=== PATIENT | male | born 1955 | race Caucasian/White ===

== ENCOUNTER 2021-08-04 09:05 | Outpatient (CLI) | payer MEDICARE, OTHER ==
[2021-08-04] MEDS ORDERED: ALBUTEROL 1 PUFF INH STA (14:37)
== END 2021-08-04 09:06 | disposition home or self-care (01) ==
LOC: RT 09:05
PROVIDERS: ATTEND Physician Assistant
DX: R06.00 Dyspnea, unspecified (principal)
CPT/HCPCS: 94060

== ENCOUNTER 2021-10-15 08:44 | Outpatient (CLI) | payer MEDICARE, OTHER | END 2021-10-15 08:45 | disposition home or self-care (01) | LOC: DI 08:44 | PROVIDERS: ATTEND Physician Assistant | DX: J44.9 Chronic obstructive pulmonary disease, unspecified (principal); R06.02 Shortness of breath; I51.7 Cardiomegaly; I07.1 Rheumatic tricuspid insufficiency; R91.8 Other nonspecific abnormal finding of lung field | CPT/HCPCS: 93306 ==

== ENCOUNTER 2021-10-15 10:05 | Outpatient (CLI) | payer MEDICARE, OTHER ==
--- NOTE | 2021-10-15 10:40 | XRAY Report ---
PROCEDURE: Chest 2 View X-Ray INDICATIONS: COUGH TECHNIQUE: 2 view(s) of the chest. COMPARISON: None. FINDINGS: Surgical changes and devices: None. Lungs and pleura: No pleural effusions or pneumothorax. There is hyperinflation. Increased bronchova scular markings in bilateral hilar region are seen with mild bronchial wall thickening. No focal infi ltrate. Mediastinum: Mediastinal contours are normal. Heart size is normal. Bones and chest wall: No suspicious bony abnormalities. Soft tissues appear unremarkable. IMPRESSION: Hyperinflation. Suggestion of reactive airway disease such as bronchitis or viral illnes s. No focal infiltrate, pleural effusion or pneumothorax. Reviewed by: Jasbir Barnes MD on 10/15/2021 10:39 AM PST Approved by: Jasbir Barnes MD on 10/15/2021 10:39 AM [facility] Station ID: [id number]
== END 2021-10-15 10:06 | disposition home or self-care (01) ==
LOC: DI 10:05
PROVIDERS: ATTEND Internal Medicine
DX: R91.8 Other nonspecific abnormal finding of lung field (principal)

== ENCOUNTER 2021-11-06 09:14 | Outpatient (CLI) | payer MEDICARE, OTHER ==
--- NOTE | 2021-11-06 09:18 | CARDIAC PROCEDURE NOTE ---
Stress Test Report Service Date: 11/06/21 Service Time: 09:30 Ordering Provider: Nemo Jones PA Indication for Test: Assess episodic complex of dyspnea, lightheadedness and variable chest discomfort. Significant Medical History: Patient with prior heavy smoking history with bronchoreactive COPD treated with long and short acting bronchodilators. When he takes these agents he has reasonably good exertional tolerance, but experiences an intermittent exertional symptom complex of worsened dyspnea, dizziness/lightheadedness and a "twinge" of sharp lower left chest pain (that resolves in seconds). He sees a trend of worsening in exertional tolerance and increased frequency of episodes of these symptoms over the past few months. As part of his evaluation he recently underwent a resting echocardiogram that showed reduced LV EF in the range of 40- 50%, with likely mild global hypokinesis and an area of worse hypokinesis in the inferior wall. Cardiac Risk Factors: Has multiple ASCVD risks, including family history of premature CAD in father (ND at age 37) and recurrent CAD events in maternal grandfather, starting in his 60's; hypertension treated for >35 yrs, treated dyslipidemia and prior heavy tobacco smoking history (quit ~10 yrs ago). No history of diabetes. He also reports abnormal ultrasound imaging of his carotids and abdominal aorta. Type of Stress Test: ETT with Echocardiography Procedure: -Exercise Treadmill Test- After signing informed consent, the patient underwent resting echo imaging, which showed possible suboptimal image quality, for which Definity contrast was administered under separate consent. He then performed treadmill exercise using a Angelo protocol. The patient exercised for 3 minutes 26 seconds and achieved a peak heart rate of 128 (82 percent predicted maximum heart rate for age), and an estimated workload of 5.2 METS. The test was terminated due to dyspnea that was initially moderate but increased precipitously with transition to stage 2 of the exercise protocol. Resting heart rate: 65 Peak heart rate: 128 Normal response to exercise. Resting BP: 136/85 Peak BP: 199/117 Physiologic increase in SBP with exe rcise, with abnormal DBP increase. Rhythm during exercise: Sinus rhythm throughout. Symptoms: Patient did not describe lightheadedness or chest discomfort, only dyspnea that abruptly became severe. He was unable to lie flat for stress echo image acquisition, that was done with him sitting upright. EKG at rest showed normal sinus rhythm with upper limit of normal QRS duration; small and likely non-diagnostic inferior q waves present with abnormal ST segment "scooping" in some leads. EKG at peak stress showed borderline ST segment depression NOT clearly meeting criteria for ischemia; presence of minor resting abnormality reduces specificity of response. Echo imaging was performed at rest and with stress will be reported separately. Rylan Read MD, was present throughout this treadmill stress study and supervised it in its entirety. Summary: 1) Exercise tolerance markedly reduced for age and gender as evidenced by MARIO of 48.5%. 2) Subtly abnormal resting EKG. 3) Submaximal exercise test with achievement of heart rate 82% predicted maximal for age. 4) Normal SBP response to exercise with abnormal DBP increase. 5) Borderline ischemic changes by EKG criteria were seen at peak stress. 6) Echo image interpretation reveals normal left ventricular size with globally reduced systolic function, and failure to increase ejection fraction with exercise, though evidence of stress-associated focal wall motion was not observed. On screening there was no evidence of morphologic valvular abnormality, but estimated right ventricular/pulmonary artery systolic pressure was borderline elevated. See separate report for more details. CONCLUSIONS: 1) Abnormal exercise tolerance test due to precipitous increase in dyspnea, requiring cessation of exercise in early stage 2. 2) Echo images show apparent failure to augment LV ejection fraction with stress. Baseline study notable for borderline elevation in estimated RV/PA systolic pressure. 3) Recommend Cardiology referral for consideration of cardiac catheterization and/or other studies for diagnostic clarification, as well as referral for JUVE evaluation.
[2021-11-06] MEDS ORDERED: PERFLUTREN LIPID MICROSPHERES 1.65 MG/1.5 ML VIAL IVP ONE (12:16)
== END 2021-11-06 09:15 | disposition home or self-care (01) ==
LOC: DI 09:14
PROVIDERS: ATTEND Physician Assistant
DX: R06.02 Shortness of breath (principal); J44.9 Chronic obstructive pulmonary disease, unspecified; Z82.49 Family history of ischemic heart disease and other diseases of the circulatory system; E78.5 Hyperlipidemia, unspecified; R94.31 Abnormal electrocardiogram [ECG] [EKG]; R07.89 Other chest pain; I10 Essential (primary) hypertension
CPT/HCPCS: 93016; 93017; 93018; 93350; Q9957

== ENCOUNTER 2023-10-23 15:39 | Outpatient (CLI) | payer MEDICARE | END 2023-10-23 15:40 | disposition E | LOC: EMS 15:39 ==